=== PATIENT | female | born 1985 | race African-American/Black ===

== ENCOUNTER 2016-02-11 11:06 | Emergency (ER) | payer BC ==
[~2016-02-11] VITALS: Ht 172.7 cm; Wt 131.5 kg
--- NOTE | ~2016-02-11 | EKG ---
[address] [address] ELECTROCARDIOGRAM REPORT Name: HENRIETTA ROQUE MONICA Room #: [facility] [id number] Admission: 02/11/16 Attend Phys: Discharge: 02/11/16 Date of : 87 Report #: [id number] THIS REPORT FOR: //name// [facility] ED Test Date: 2016-02-11 Test Time: 11:16:00 Pat Name: HENRIETTA ROQUE Department: Room: Gender: F Human Resource Assistant: Ashu HICKS : 1985 Requested By: Quang Tineo Order Number: [id number] MD: Jordan Spears Measurements Intervals [place] Rate: 85 P: 41 OK: 178 QRS: 34 QRSD: 95 T: 27 QT: 376 QTc: 447 Interpretive Statements Sinus rhythm No previous ECG available for comparison Electronically Signed On 02-11-2016 14:20:34 [employer] DEVELOPER by Jordan Spaers [email or web address] <ELECTRONICALLY SIGNED> By: Jordan Spears MD 02/11/16 1420 1116 [id number] Jordan Spears MD /DEAN
[~2016-02-11 11:06] MED LIST: NORCO 5-325 TA1 EACH PO; ONDANSETRON ODT4 MG PO
[2016-02-11 12:25] LABS: ABSOLUTE NEUTROPHILS 5.2 thou/uL (1.4-8.2); BASOPHILS 1.2 % (0.0-2.0); EOSINOPHILS 1.1 % (0.0-3.0); HEMATOCRIT 35.2 % (37.0-47.0); HEMOGLOBIN 10.9 gm/dL (12.0-15.0); LYMPHOCYTES 42.1 % (24.0-44.0); MANUAL DIFF NO; MCH 22.1 pg (26.0-34.0); MCV 71.3 fL (80.0-100.0); MONOCYTES 11.4 % (1.0-8.0); PLATELET COUNT 473 thou/uL (150-400); POLYS 44.2 % (36.0-66.0); RBC 4.94 mil/uL (4.20-5.00); RDW 18.4 % (10.5-14.5); WBC 11.9 thou/uL (4.0-11.0)
[2016-02-11 12:28] LABS: ANION GAP 7 mmol/L (7-16); BUN 7 mg/dL (7-18); CALCIUM 8.7 mg/dL (8.5-10.1); CHLORIDE 107 mmol/L (98-107); CO2 27 mmol/L (21-32); CREATININE 0.8 mg/dL (0.6-1.3); GLUCOSE 88 mg/dL (70-99); SODIUM 141 mmol/L (136-145)
[2016-02-11 12:37] LABS: TROPONIN-I < 0.04 ng/mL (<0.04-0.07)
[2016-02-11 12:40] LABS: ANISOCYTOSIS 2+; HYPOCHROMASIA 2+; MICROCYTES 1+; PLATELET ESTIMATE INCREASED
[2016-02-11] MEDS ORDERED: IBUPROFEN 600600 M1 PO (13:26)
== END 2016-02-11 13:38 | disposition home or self-care (01) ==
LOC: ER 11:06
PROVIDERS: Nurse Practitioner
DX: R07.89 Other chest pain (principal)